=== PATIENT | male | born 1950 | race Caucasian/White ===

== ENCOUNTER → 2021-03-23 | Outpatient (CLI) | payer OTHER | LOC: SJCVC 14:18 | PROVIDERS: ATTEND Internal Medicine | DX: R94.31 Abnormal electrocardiogram [ECG] [EKG] (principal); I11.9 Hypertensive heart disease without heart failure; I48.91 Unspecified atrial fibrillation; R55 Syncope and collapse; Z72.89 Other problems related to lifestyle; Z79.899 Other long term (current) drug therapy; Z79.82 Long term (current) use of aspirin ==

== ENCOUNTER → 2021-04-28 | Outpatient (CLI) | payer OTHER ==
[~2021-04-28] MED LIST: ACCUNEB SO1.25 MG/1 INH; ALPRAZOLAM 0.0.25 MG PO; ASA81BEC PO; DILTIAZEM ER120 M2 PO; ELIQUIS5 MG PO; GABAPENTIN600 M1 PO; LASIX 40 MG TAB40 MG PO; PHENOBARBITAL15 MG PO; TRAZODONE HCL100 MG PO
== END ==
LOC: SJCVCIMAG 04-14 09:43
PROVIDERS: ATTEND Internal Medicine
DX: I48.91 Unspecified atrial fibrillation (principal); I49.3 Ventricular premature depolarization; R06.00 Dyspnea, unspecified; G62.9 Polyneuropathy, unspecified; I42.9 Cardiomyopathy, unspecified; I10 Essential (primary) hypertension; F17.200 Nicotine dependence, unspecified, uncomplicated; Z79.82 Long term (current) use of aspirin; Z79.899 Other long term (current) drug therapy; Z82.49 Family history of ischemic heart disease and other diseases of the circulatory system

== ENCOUNTER → 2021-05-01 | Outpatient (CLI) | payer OTHER ==
[~2021-05-01] VITALS: Ht 185.4 cm; Wt 65.0 kg
[2021-05-01 07:39] VITALS: BP 117/85
--- NOTE | 2021-05-01 08:48 | TEE ---
[facility] [address] [facility] [place] [address] TRANSESOPHAGEAL ECHOCARDIOGRAM Name: PAULIE HERNANDEZ Room #: REG [facility]#: [id number] Admission: 05/01/21 Attend Phys: Bin Arnett MD, Discharge: Date of : 48 Report #: [id number] THIS REPORT FOR: cc: Star Goyal MD, Curtis MD Santiago, Patrick MD [facility] ~ APPROVED REPORT Study performed: 05/01/2021 07:48:06 EXAM: Comprehensive 2D, Doppler, and color-flow Echocardiogram Patient Location: Out-Patient Room #: 9 BSA: 1.87 HR: 92 bpm BP: 123/86 mmHg Rhythm: Atrial Fibrillation Other Information Study Quality: Good Indications Atrial Fibrillation Echo Enhancing Agent Indication: Rule out Shunt Agent(s) / Amount(s) Used: Agitated Saline 7 cc Procedure After obtaining informed consent, patient underwent transesophageal echo in the [employer]. Type of Sedation : Conscious Sedation Sedation was administered by Nurse. Sedation start time: 809 Case end Time: 814 Sedation was achieved intravenously with: Versed (5.5 mg) Transesophageal probe was inserted and advanced into esophagus without difficulty by Bin Messina MD. Echo enhancement indication: R/O Septal defect. Echo enhancement agent administered: Agitated Saline The EMI was performed without complications. Synchronized Cardioversion acheived with 120 Joules after 1 attempt(s). Rhythm following Synchronized Cardioversion: Normal Sinus Rhythm [facility] [place] [address] TRANSESOPHAGEAL ECHOCARDIOGRAM Name: MARYPAULIE Room #: REG [facility]#: [id number] Admission: 05/01/21 Attend Phys: Bin Arnett, Discharge: Date of : 48 Report #: [id number] Throughout the procedure, the blood pressure, pulse oximetry, cardiac rhythm, and rate were monitored. The patient tolerated the procedure without adverse effects. Recovery from conscious sedation was uneventful and vital signs were stable. Left Ventricle The left ventricle is normal size. There is normal left ventricular wall thickness. Left ventricular systolic function is borderline. LVEF is 50%. Right Ventricle The right ventricle is normal size. The right ventricular systolic function is normal. Atria The left atrium size is normal. No thrombus is visualized in the left atrium or appendage. Interatrial septum is intact without evidence of ASD or PFO. Right atrium is dilated. Aortic Valve The aortic valve is normal in structure. Trace aortic regurgitation. There is no aortic valvular stenosis. Mitral Valve The mitral valve is normal in structure. There is no mitral valve regurgitation noted. No evidence of mitral valve stenosis. Tricuspid Valve The tricuspid valve is normal in structure. Trace to mild tricuspid regurgitation. Pulmonic Valve The pulmonary valve is normal in structure. There is no pulmonic valvular regurgitation. Great Vessels The aortic root is normal in size. Pericardium There is no pericardial effusion. <Conclusion> Atrial fibrillation at baseline Timeout performed Consent was obtained [facility] [address] [place] [address] TRANSESOPHAGEAL ECHOCARDIOGRAM Name: PAULIE HERNANDEZ [id number] Admission: 05/01/21 Attend Phys: Bin Arnett, Discharge: Date of : 48 Report #: [id number] After appropriate sedation esophageal probe was advanced without difficulty Left atrial appendage moderate size, no obvious mass or clot detected Normal atrial size Normal left ventricular size/wall thickness ejection fraction 50% Normal aortic/mitral valve structure and function Trace tricuspid valve insufficiency Normal aortic root size Aorta no significant calcification detected No evidence of ASD/VSD detected. Patient converted to sinus rhythm after 120 J/biphasic mode Patient tolerated procedure well Twelve-lead ECG pending <ELECTRONICALLY SIGNED> By: Bin Arnett MD, FACC 05/01/2148 7 7 Bin Arnett MD, FACC /INF
--- NOTE | 2021-05-01 09:31 | EKG ---
[place] [address] [facility] [place] [address] ELECTROCARDIOGRAM REPORT Name: PAULIE HERNANDEZ 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1950 Requested By: Bin Arnett Order Number: [id number] MD: Bin Arnett Measurements Intervals [place] Rate: 82 P: 80 WI: 168 QRS: 63 QRSD: 97 T: 55 QT: 391 QTc: 457 Interpretive Statements Sinus rhythm Probable left atrial enlargement RSR' in V1 or V2, right VCD or RVH Abnormal T, consider ischemia, anterior leads Baseline wander in lead(s) III,aVF No previous ECG available for comparison Electronically Signed On 05-01-2021 9:31:19 CDT by Bin Arnett [email or web address] <ELECTRONICALLY SIGNED> By: Bin Arnett MD, [facility] 05/01/2131 4 Bin Arnett MD, [facility] /EPI
== END | disposition home or self-care (01) ==
LOC: CATH 04-30 12:14
PROVIDERS: ATTEND Internal Medicine
DX: I48.91 Unspecified atrial fibrillation (principal); I08.2 Rheumatic disorders of both aortic and tricuspid valves; I42.9 Cardiomyopathy, unspecified; I10 Essential (primary) hypertension; J44.9 Chronic obstructive pulmonary disease, unspecified; G62.9 Polyneuropathy, unspecified; F17.210 Nicotine dependence, cigarettes, uncomplicated; Z98.890 Other specified postprocedural states; Z79.899 Other long term (current) drug therapy; Z79.01 Long term (current) use of anticoagulants; Z82.49 Family history of ischemic heart disease and other diseases of the circulatory system

== ENCOUNTER → 2021-05-06 | Outpatient (CLI) | payer OTHER | LOC: SJCVC 10:58 | PROVIDERS: ATTEND Internal Medicine | DX: R94.31 Abnormal electrocardiogram [ECG] [EKG] (principal); I48.91 Unspecified atrial fibrillation; R00.2 Palpitations; G62.9 Polyneuropathy, unspecified; I42.9 Cardiomyopathy, unspecified; I10 Essential (primary) hypertension; F17.200 Nicotine dependence, unspecified, uncomplicated; Z79.82 Long term (current) use of aspirin; Z79.899 Other long term (current) drug therapy; Z82.49 Family history of ischemic heart disease and other diseases of the circulatory system ==

== ENCOUNTER → 2021-05-29 | Outpatient (CLI) | payer OTHER ==
[~2021-05-29] VITALS: Ht 185.4 cm; Wt 63.6 kg
[~2021-05-29] MED LIST changes: +ADDERALL XR 2020 MG PO; +OXYCODONE HCL10 MG PO; +VITAMIN D310 MC1 PO
[2021-05-29 07:28] VITALS: BP 102/61
--- NOTE | 2021-05-29 12:11 | EKG ---
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1950 Requested By: Bin Arnett Order Number: [id number] MD: Bin Arnett Measurements Intervals [place] Rate: 71 P: 71 IN: 172 QRS: 65 QRSD: 101 T: 52 QT: 426 QTc: 463 Interpretive Statements Sinus rhythm Atrial premature complexes RSR' in V1 or V2, probably normal variant Compared to ECG 05/01/2021 08:35:19 Atrial premature complex(es) now present Right ventricular hypertrophy no longer present T-wave abnormality no longer present Possible ischemia no longer present Electronically Signed On 05-29-2021 12:10:55 CDT by Bin Arnett [email or web address] <ELECTRONICALLY SIGNED> By: Bin Arnett MD, FAC 05/29/21 1210 0840 0840 Bin Arnett MD, [facility] /EPI
== END | disposition home or self-care (01) ==
LOC: CATH 05-15 08:35
PROVIDERS: ATTEND Internal Medicine
DX: I48.91 Unspecified atrial fibrillation (principal); I42.9 Cardiomyopathy, unspecified; R55 Syncope and collapse; I10 Essential (primary) hypertension; J44.9 Chronic obstructive pulmonary disease, unspecified; Z82.49 Family history of ischemic heart disease and other diseases of the circulatory system; F17.210 Nicotine dependence, cigarettes, uncomplicated; Z79.899 Other long term (current) drug therapy; Z79.01 Long term (current) use of anticoagulants

== ENCOUNTER → 2021-06-09 | Outpatient (CLI) | payer OTHER | LOC: SJCVC 11:35 | PROVIDERS: ATTEND Internal Medicine | DX: R94.31 Abnormal electrocardiogram [ECG] [EKG] (principal); I48.0 Paroxysmal atrial fibrillation; Z72.89 Other problems related to lifestyle; Z79.82 Long term (current) use of aspirin; Z79.899 Other long term (current) drug therapy ==

== ENCOUNTER → 2021-07-09 | Outpatient (CLI) | payer OTHER | LOC: SJCVC 15:23 | PROVIDERS: ATTEND Internal Medicine Cardiovascular Disease | DX: R94.31 Abnormal electrocardiogram [ECG] [EKG] (principal); I48.19 Other persistent atrial fibrillation; I42.9 Cardiomyopathy, unspecified; R55 Syncope and collapse; I82.492 Acute embolism and thrombosis of other specified deep vein of left lower extremity; I10 Essential (primary) hypertension; F17.200 Nicotine dependence, unspecified, uncomplicated; Z72.89 Other problems related to lifestyle; Z79.82 Long term (current) use of aspirin; Z79.899 Other long term (current) drug therapy ==

== ENCOUNTER → 2021-08-10 | Outpatient (CLI) | payer OTHER | LOC: SJCVC 10:35 | PROVIDERS: ATTEND Internal Medicine | DX: I48.91 Unspecified atrial fibrillation (principal); I10 Essential (primary) hypertension; R94.31 Abnormal electrocardiogram [ECG] [EKG]; R55 Syncope and collapse; Z72.89 Other problems related to lifestyle; Z79.82 Long term (current) use of aspirin; Z79.899 Other long term (current) drug therapy; Z87.891 Personal history of nicotine dependence; Z82.49 Family history of ischemic heart disease and other diseases of the circulatory system ==